=== PATIENT | female | born 1965 | race Caucasian/White ===

== ENCOUNTER 2018-08-26 08:41 | Day surgery (SDC) | payer MEDICAID ==
[~2018-08-26 08:41] MED LIST: Sodium Chloride 0.9% 1,000 ML IV SCH
[2018-08-26] MEDS ORDERED: Lactated Ringers 1,000 ML IV SCH (09:15)
[2018-08-26] MEDS ORDERED: Propofol 200 MG/20 ML SDV ONE ×2 (09:37→10:31)
[2018-08-26] MEDS ORDERED: fentaNYL 100 MCG/2 ML SDV ONE (09:37)
[2018-08-26] MEDS ORDERED: Midazolam 1 MG/ML 2 ML SDV ONE (09:37)
[2018-08-26] MEDS ORDERED: Ondansetron 4 MG/2 ML SDV ONE (10:14)
[2018-08-26 11:32] VITALS: BP 116/91
--- NOTE | 2018-08-29 07:40 | OR ---
DATE OF PROCEDURE: 08/26/2018 PREOPERATIVE DIAGNOSES: Gastroesophageal reflux disease, colon cancer screening. POSTOPERATIVE DIAGNOSES: Possible Melanie esophagitis, gastroesophageal reflux disease, gastritis, small colon polyp 15 cm from the anal verge. PROCEDURE PERFORMED: Esophagogastroduodenoscopy with antral biopsies for CLOtest and tissue sent for pathology to look for Helicobacter pylori, biopsy of gastroesophageal junction, biopsy of esophageal white plaque, colonoscopy to the cecum with biopsy resection of small polyp 15 cm from the anal verge. SURGEON: Dillon Philippe MD ANESTHESIA: IV anesthesia with monitored anesthesia care. INDICATION: This 53-year-old white female was referred for upper and lower endoscopy. Indication for the upper endoscopy is reflux. Indication for the colonoscopy is colon cancer screening. She has never had a colonoscopic exam. I counseled her for the procedures, including risks and alternatives, and she gave her informed consent to proceed. DESCRIPTION OF PROCEDURE: The patient was placed in the left lateral decubitus position. IV anesthesia was administered by the Anesthesia Service. Time-out was held. The flexible video Olympus upper endoscope was passed through her mouth, down her esophagus, into her stomach. The scope was easily passed through the pylorus into the duodenum, reaching its third portion. The scope was then slowly withdrawn, examining the mucosa throughout. The duodenal mucosa appeared unremarkable. The scope was brought up through the pylorus. There was erythema present suggestive of gastritis. We obtained antral biopsies for CLOtest and for pathology to look for Helicobacter pylori. The scope was retroflexed. The proximal stomach appeared unremarkable. The scope was straightened and brought up through the GE junction. This was abnormal with the Z-line not being straight. There were fingers of gastric mucosa going proximally up into the esophagus. We obtained multiple, totalling 6, biopsies of the gastroesophageal junction. The scope was then brought up through the esophagus. We saw a few flecks of white plaque, suggestive of Melanie esophagitis. We attempted to obtain biopsies of this white plaque. The scope was then removed. Next, a rectal exam was performed which was unremarkable. The flexible video Olympus colonoscope was introduced through her anus, up her rectum, and out her colon all the way to the cecum. Once the cecum was reached, the scope was slowly withdrawn, examining the mucosa throughout. No mucosal abnormalities were noted until we reached 15 cm from the anal verge. Here, we encountered a small polyp, which was removed with the biopsy forceps. The scope was brought back further into the rectum, here it was retroflexed with the distal rectum appearing unremarkable. The scope was straightened and removed. She tolerated the procedure well. Dillon Philippe MD /[id number]
== END 2018-08-26 11:49 | disposition home or self-care (01) ==
LOC: JP.SDS 08:41
PROVIDERS: ATTEND Surgery
DX: K21.9 Gastro-esophageal reflux disease without esophagitis (principal); B37.81 Candidal esophagitis; K31.9 Disease of stomach and duodenum, unspecified; Z12.11 Encounter for screening for malignant neoplasm of colon; D12.7 Benign neoplasm of rectosigmoid junction; Z88.0 Allergy status to penicillin
CPT/HCPCS: 43239; 45380; 87081; J2250; J2405; J2704; J3010; J7120; 88305

== ENCOUNTER 2024-11-21 15:56 | Inpatient (IN) | payer MEDICARE, MEDICAID ==
[2024-11-21] MEDS ORDERED: Ondansetron 4 MG/2 ML SDV IV PRN (16:00)
[2024-11-21] MEDS ORDERED: Sodium Chloride 0.9% 10 ML Syringe FLUSH PRN (16:00)
[2024-11-21 16:28] LABS: BASOPHILS ABSOLUTE AUTO 0.28 K/uL (0.00-0.10); BASOPHILS PERCENT AUTO 2.1 % (0.1-1.3); EOSINOPHILS ABSOLUTE AUTO 1.07 K/uL (0.00-0.40); EOSINOPHILS PERCENT AUTO 8.1 % (0.0-5.4); IMMATURE GRAN ABSOLUTE AUTO 0.04 K/uL (0.00-0.23); IMMATURE GRAN PERCENT AUTO 0.3 % (0.0-0.7); LYMPHOCYTES ABSOLUTE AUTO 1.52 K/uL (0.8-3.3); LYMPHOCYTES PERCENT AUTO 11.5 % (11.4-47.7); MONOCYTES ABSOLUTE AUTO 0.76 K/uL (0.20-0.90); MONOCYTES PERCENT AUTO 5.7 % (3.3-12.6); NEUTROPHILS ABSOLUTE AUTO 9.59 K/uL (1.0-7.6); NEUTROPHILS PERCENT AUTO 72.3 % (40.0-78.1); PLATELET COUNT,PLT 402 K/uL (130-375); RED BLOOD CELL COUNT 4.64 M/uL (3.77-5.24); WHITE BLOOD CELL COUNT,WBC 13.3 K/uL (3.2-11.0)
[2024-11-21 16:51] LABS: A/G RATIO 0.7 (1.2-2.2); ALANINE AMINOTRANSFERASE,ALT 44 U/L (12-78); ASPARTATE AMNIOTRANSFERASE,AST 45 U/L (15-37); BILIRUBIN TOTAL 0.4 mg/dL (0.2-1.0); BLOOD UREA NITROGEN,BUN 14 mg/dL (7-18); CARBON DIOXIDE,CO2 28 mmol/L (21-32); CHLORIDE,CL 98 mmol/L (100-108); CREATININE 0.8 mg/dL (0.6-1.0); EST CRCL DRUG DOSING (CG) 61.36 mL/min; ESTIMATED GFR 86 mL/min (>60); GLUCOSE RANDOM 101 mg/dL (74-106); POTASSIUM,K 4.7 mmol/L (3.6-5.2); PROTEIN TOTAL,TP 7.0 g/dL (6.4-8.2); SODIUM,NA 136 mmol/L (140-148)
[2024-11-21 16:53] LABS: TROPONIN I HIGH SENSITIVITY 109.9 pg/mL (<=60.3)
[2024-11-21] MEDS: Hydrocortisone Sodium Succinate 100 MG/2 ML SDV IVPUSH ONE (17:44)
[2024-11-21] MEDS: Albuterol 0.083% 2.5 MG/3 ML Neb Soln NEB PRN (17:55)
[2024-11-21 18:38] LABS: APPEARANCE,URINE CLEAR (CLEAR); GLUCOSE,URINE NEGATIVE (NEGATIVE); OCCULT BLOOD,URINE TRACE-INTACT (NEGATIVE)
[2024-11-21 18:50] LABS: BASE EXCESS ARTERIAL -0.9 mm/L; BICARBONATE,ARTERIAL 24.2 mmol/L (22.0-26.0); O2 SATURATION ARTERIAL 94.9 % (95.0-98.0); OXYHEMOGLOBIN 92.1 %; PCO2 ARTERIAL 44.4 mmHg (35.0-42.0); PO2 ARTERIAL 91.2 mmHg (75.0-100.0); TOTAL HEMOGLOBIN 13.7 g/dL (12.0-16.0)
[2024-11-21 18:56] LABS: EPITHELIAL CELLS,URINE FEW
[2024-11-22] MEDS: Furosemide 40 MG/4 ML VIAL IVPUSH ONE (06:39)
[2024-11-22 07:30] LABS: PLATELET COUNT,PLT 319.0 K/uL (130-375); RED BLOOD CELL COUNT 4.33 M/uL (3.77-5.24); WHITE BLOOD CELL COUNT,WBC 12.0 K/uL (3.2-11.0)
[2024-11-22 08:07] LABS: A/G RATIO 0.7 (1.2-2.2); ALANINE AMINOTRANSFERASE,ALT 37 U/L (12-78); ASPARTATE AMNIOTRANSFERASE,AST 44 U/L (15-37); BILIRUBIN TOTAL 0.4 mg/dL (0.2-1.0); BLOOD UREA NITROGEN,BUN 12 mg/dL (7-18); CARBON DIOXIDE,CO2 28 mmol/L (21-32); CHLORIDE,CL 105 mmol/L (100-108); CREATININE 0.7 mg/dL (0.6-1.0); EST CRCL DRUG DOSING (CG) 70.13 mL/min; ESTIMATED GFR 101 mL/min (>60); GLUCOSE RANDOM 101 mg/dL (74-106); POTASSIUM,K 4.0 mmol/L (3.6-5.2); PROTEIN TOTAL,TP 6.4 g/dL (6.4-8.2); SODIUM,NA 142 mmol/L (140-148)
[2024-11-22] MEDS ORDERED: Iopamidol 612 MG/ML 100 ML Bottle IV PRN (14:32)
[2024-11-22] MEDS ORDERED: Sodium Chloride 0.9% 10 ML Syringe FLUSH PRN (14:32)
[2024-11-22 18:02] LABS: BASE EXCESS ARTERIAL 2.7 mm/L; BICARBONATE,ARTERIAL 26.7 mmol/L (22.0-26.0); O2 SATURATION ARTERIAL 95.2 % (95.0-98.0); OXYHEMOGLOBIN 92.4 %; PCO2 ARTERIAL 41.0 mmHg (35.0-42.0); PO2 ARTERIAL 84.3 mmHg (75.0-100.0); TOTAL HEMOGLOBIN 13.9 g/dL (12.0-16.0)
[2024-11-23 06:24] LABS: BLOOD UREA NITROGEN,BUN 10.0 mg/dL (7-18); CARBON DIOXIDE,CO2 28.0 mmol/L (21-32); CHLORIDE,CL 103.0 mmol/L (100-108); CREATININE 0.5 mg/dL (0.6-1.0); EST CRCL DRUG DOSING (CG) 98.18 mL/min; ESTIMATED GFR 109.0 mL/min (>60); GLUCOSE RANDOM 82.0 mg/dL (74-106); POTASSIUM,K 3.4 mmol/L (3.6-5.2); SODIUM,NA 138.0 mmol/L (140-148)
[2024-11-23] MEDS: Magnesium Sulfate 2 GM/50 mL 2 GM in Premix Bag 1 BAG IV SCH (08:40)
[2024-11-23] MEDS: Potassium Chloride 20 MEQ Tab.ER PO ONE (08:48)
[2024-11-23] MEDS: DEXTROSE IV SCH (18:15)
[2024-11-23] MEDS: TRIMETHOPRIM IV SCH (18:15)
[2024-11-23] MEDS: SULFAMETHOXAZOLE IV SCH (18:15)
[2024-11-23] MEDS: WATER IV SCH (18:15)
[2024-11-23 18:45] VITALS: BP 108/69; PULSE 99
== END 2024-11-23 19:50 | DRG 871 ==
LOC: JP.ICU 15:56
PROVIDERS: ADMIT Hospitalist; ATTEND Hospitalist
PROC: 3E03329 Introduction of Other Anti-infective into Peripheral Vein, Percutaneous Approach (ICD-10-PCS; principal; 2024-11-21)
PROC: 4A133R1 Monitoring of Arterial Saturation, Peripheral, Percutaneous Approach (ICD-10-PCS; principal; 2024-11-21)
PROC: 5A0935A Assistance with Respiratory Ventilation, Less than 24 Consecutive Hours, High Flow/Velocity Cannula (ICD-10-PCS; principal; 2024-11-21)
DX: A41.9 Sepsis, unspecified organism (principal); J18.9 Pneumonia, unspecified organism; J96.21 Acute and chronic respiratory failure with hypoxia; J44.0 Chronic obstructive pulmonary disease with (acute) lower respiratory infection; D68.51 Activated protein C resistance; E27.40 Unspecified adrenocortical insufficiency; K21.9 Gastro-esophageal reflux disease without esophagitis; R79.89 Other specified abnormal findings of blood chemistry; E61.1 Iron deficiency; M06.9 Rheumatoid arthritis, unspecified; Z88.0 Allergy status to penicillin; Z79.899 Other long term (current) drug therapy; Z79.52 Long term (current) use of systemic steroids; Z98.890 Other specified postprocedural states; Z98.891 History of uterine scar from previous surgery; Z98.51 Tubal ligation status; Z87.891 Personal history of nicotine dependence; Z98.1 Arthrodesis status
CPT/HCPCS: 36415; 36600; 71046; 71046-26; 71260; 71260-26; 80048; 80053; 81001; 82803; 83605; 83735; 84484; 85025; 85027; 86140; 87040; 93306; 94640; 99223; 99232; 99239; A9270-GY; J0696; J1650; J1720; J1938; J3475; J3490; J7030; J7060; J7512; U0002